=== PATIENT | male | born 1980 | race Caucasian/White ===

== ENCOUNTER 2021-06-27 06:15 | Emergency (ER) | payer SELFPAY ==
[~2021-06-27] VITALS: Ht 182.9 cm; Wt 199.6 kg
== END 2021-06-27 07:48 | disposition home or self-care (01) ==
LOC: ER 06:29
DX: R06.00 Dyspnea, unspecified (principal); E66.01 Morbid (severe) obesity due to excess calories; I10 Essential (primary) hypertension
CPT/HCPCS: 99284